=== PATIENT | female | born 1950 | race Two or more races ===

== ENCOUNTER 2023-07-02 11:00 | Emergency (ER) | payer MEDICARE, OTHER ==
[~2023-07-02] VITALS: Ht 162.6 cm; Wt 86.0 kg
[2023-07-02 11:12] VITALS: O2SAT 98
[2023-07-02] MEDS ORDERED: TOPUD PO (12:45)
[2023-07-02 13:32] VITALS: BP 124/75; PULSE 75; RESP 16; TEMP 98.6
== END 2023-07-02 13:34 | disposition home or self-care (01) ==
LOC: ER 11:00
DX: S52.502A Unspecified fracture of the lower end of left radius, initial encounter for closed fracture (principal); I10 Essential (primary) hypertension; Z98.890 Other specified postprocedural states; W01.0XXA Fall on same level from slipping, tripping and stumbling without subsequent striking against object, initial encounter; Y93.89 Activity, other specified; Y92.89 Other specified places as the place of occurrence of the external cause; Y99.8 Other external cause status
CPT/HCPCS: 29105; 73070; 73110; 99284